=== PATIENT | male | born 1985 | race Two or more races ===

== ENCOUNTER 2025-10-17 05:40 | Day surgery (SDC) | payer OTHER, SELFPAY ==
[2025-10-16 12:33] VITALS: BMI 26.7
[2025-10-16 13:30] LABS: Basophils # (Auto) 0.1 Thou/mm3 (0.0-0.2); Basophils % (Auto) 1 % (0-2.5); Eosinophils # (Auto) 0.2 Thou/mm3 (0.0-0.5); Eosinophils % (Auto) 2 % (0-10); Hematocrit 47.9 % (41.0-53.0); Hemoglobin 16.5 g/dL (13.5-16.0); Immature Granulocytes Auto 0.00 Thou/mm3 (0.00-0.00); Lymphocytes # (Auto) 2.6 Thou/mm3 (1.0-4.8); Lymphocytes % (Auto) 39 % (10-50); Mean Corpuscular HGB Conc 34.4 g/dl (31.0-37.0); Mean Corpuscular Hemoglobin 28.5 pg (25.0-35.0); Mean Corpuscular Volume 83 fL (80-100); Monocytes # (Auto) 0.5 Thou/mm3 (0.0-0.8); Monocytes % (Auto) 7 % (0-12); Neutrophils # (Auto) 3.5 Thou/mm3 (1.8-7.7); Neutrophils % (Auto) 51 % (37-80); Nucleated Red Blood Cell # 0.00 Thou/mm3 (0.00-0.00); Nucleated Red Blood Cell % 0 /100 WBC (0); Platelet Count 272 Thou/mm3 (140-440); RDW Standard Deviation 36.4 fL (35.1-43.9); Red Blood Count 5.79 Miln/mm3 (4.50-5.90); White Blood Count 6.8 Thou/mm3 (3.8-10.6)
[2025-10-16 13:45] LABS: INR 1.1 (0.9-1.3); Partial Thromboplastin Time 29.9 Seconds (22.0-36.0); Prothrombin Time 11.3 Seconds (9.0-12.2)
[2025-10-16 13:49] LABS: Anion Gap 10 (7-16); BUN/Creatinine Ratio 16 Ratio (12-20); Blood Urea Nitrogen 14 mg/dL (9-23); Calcium 9.9 mg/dL (8.3-10.6); Carbon Dioxide 30.0 mMol/L (20.0-31.0); Chloride 102 mMol/L (98-107); Creatinine (Component) 0.9 mg/dL (0.6-1.3); Estimated Creatinine Clearance 113.9 mL/min (>60); Glucose 96 mg/dL (74-106); Osmolality,Calculated 283 (275-295); Potassium 3.8 mMol/L (3.4-5.1); Sodium 142 mMol/L (136-145); eGFR > 60 See Note
[2025-10-17] VITALS (7 sets, daily range): BP systolic 99–127; BP diastolic 63–80; PULSE 54–63; RESP 14–18; TEMP 36.3–36.4; O2SAT 97–100; BMI 26.6
--- NOTE | 2025-10-17 09:02 | SUR.PHASEI ---
pt received from OR in recovery bay 3. pt obtunded, breathing unlabored on oxymask 8l, oral airway in place. v/s stable. pt dressing right shoulder cdi. arm sling in place. report received from Jarod MCCAIN and Suleman GOODWIN.
--- NOTE | 2025-10-17 10:15 | SUR.PHASEII ---
pt able to tolerate oral fluids without difficulty swallowing or nausea/vomiting.
--- NOTE | 2025-10-17 10:20 | SUR.PHASEII ---
pt awake and alert, breathing unlabored on room air. v/s stable. pt dressing to right shoulder cdi, arm sling in place. pt able to ambulate to wheelchair with steady gait. d/c instructions given with in room all questions answered. pt d/c via wheelchair with all belogings.
--- NOTE | 2025-10-17 11:41 | PD.SUROPNT ---
Date of Procedure 10/17/25 Pre Op Diagnosis 1. Right rotator cuff tear 2 right shoulder impingement syndrome Post Op Diagnosis Same Procedure 1. Excision lateral end of the clavicle 2. Excision coracoacromial ligament 3 acromioplasty 4 repair of rotator cuff 5. 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 There was a small bony spur touching the rotator cuff. The rotator cuff was torn. There was a full-thickness tear and lateral retraction was present as well. There was 3 to 4 mm anterior osteophytes and 2 mm lateral osteophytes coming out from the acromial process. Procedure Description The patient was given general endotracheal anesthesia. Right shoulder block was also given. Once satisfactory anesthesia was achieved patient was put in about 45?? sitting position with sandbag underneath the right shoulder blade. The part was thoroughly prepped and draped. A skin incision was made at the AC joint extending proximally towards the neck for a half inches and distally towards the arm for about couple of inches. Deeper dissection was carried out. Bleeding vessels were electrocoagulated as and when encountered. The soft tissue was reflected. Following that AC joint was exposed. It revealed significant osteoarthritic changes with thickened capsule. There was some osteophyte coming out from the inferior aspect of the lateral end of the clavicle touching the rotator cuff. The deltoid muscle was reflected from the anterior and lateral aspect of the acromial process. It revealed 3 to 4 mm long anterior osteophytes and 2 to 3 mm long lateral osteophytes Following that a periosteal elevator was placed underneath the lateral end of the clavicle and lateral 3-4 mm was excised. The coracoacromial ligament was removed. With the help of curved osteotome the undersurface of the Acromial processes was chiseled out. That made more room between the superior surface of the head of the humerus and undersurface of the acromial process. Following that the rotator cuff was inspected. It revealed big oval tear, however most of the fibers were attached to the greater tuberosity. There is some retraction as well. Wound was irrigated with antibiotic solution every 4-5 minutes. The left shoulder was manipulated at this time. Full range of abduction and forward flexion was achieved. The rotator cuff tear was repaired with 2-0 Vicryl. 2 drill holes were made on the acromial process and deltoid muscle was stitched back to it. Some reinforcement sutures were placed. The subcutaneous tissue was then closed with the help of 2-0 Vicryl and 3-0 Vicryl in layers. The skin was closed with a 4-0 Monocryl After cleaning the wound with hydrogel proximal solution and sterile dressing was applied. Prineo tape was applied. Patient was taken to the recovery room in good condition. Estimated blood loss 20 mL. Prognosis in this case is good. Anesthesia GETA and other Pathology / specimen None Estimated Blood Loss 20 Surgeon Genaro Calderon MD Surgical Staff Operation Date: 10/17/25 07:30 Case Staff DRAW FRAME RUNNER: Milton Marroquin RNschool childcare attendant: Madai Martinez
--- NOTE | 2025-10-17 12:01 | ESHP_ITS ---
RE: SHAJI ALMONTE : 1985 DATE OF ADMISSION: 10/17/2025 The patient came to my office on 10/16/2025 for detailed preop history and physical examination. HISTORY OF PRESENTING COMPLAINT: The patient presented to me earlier with severe pain of the right shoulder. Pain is quite bad. The patient graded intensity of pain to be 7-8 out of 10. Unable to sleep. Quality of life and activity of daily living is affected. The patient is unable to raise the right arm above the shoulder level. In fact, he has very limited range of motion. Conservative treatment did not help him. The patient wants something to be done about it. PAST MEDICAL HISTORY: No history of diabetes mellitus, high blood pressure, asthma, seizures, chest pain, myocardial infarction, bleeding disorder. PAST SURGICAL HISTORY: Nil known. FAMILY HISTORY AND SOCIAL HISTORY: The patient denies smoking, drinking and is not working. PHYSICAL EXAMINATION: GENERAL: Normal-built person. VITAL SIGNS: Pulse is 58 per minute. Blood pressure is 113/76. NECK: Soft, supple; no mass felt. Trachea is centrally placed. CARDIOVASCULAR SYSTEM: First and second heart sound normal. No murmur heard. RESPIRATORY SYSTEM: Bilateral vesicular breath sounds. Chest clear. ABDOMEN: Soft, scaphoid. No mass felt. Bowel sounds present. EXTREMITIES: Right shoulder examination revealed prominence of the lateral end of the clavicle consistent with grade 1/2 sprain. 2+ tenderness. Active range of motion 0-80 degrees of abduction, 0-80 degrees of forward flexion. Internal rotation is painful and severely restricted. Lorena test, drop arm test and impingement tests are positive. The patient has weak fist and gaming manager. MRI scan was obtained which revealed full thickness tear of the rotator cuff with some retraction. There is DJD at AC joint with a type 2 acromial process. Since the patient is symptomatic therefore right rotator cuff repair with Sharmila procedure was discussed and advised. Risks with anesthesia was explained and that includes but not limited to reaction to anesthetic agents, cardiac arrest, and rarely it might be fatal. Risks with the operation includes infection and if that happens the patient may need further surgical procedure. Other risks include delayed healing, wound dehiscence, etc. Indeed physical therapy is very important component for successful outcome of the procedure. Full cooperation with the physical therapy is very much beneficial for a good outcome and the patient is fully aware of that. The patient wanted to proceed with surgery. Surgery is booked for 10/17/2025 in [facility]. Appropriate lab work is done. DT: 11:50:01 TT: 12:00:00 Ref: [id number] - TID: [id number]
== END 2025-10-17 10:20 | disposition home or self-care (01) ==
PROVIDERS: Referring Provider Orthopaedic Surgery; Visit Provider Orthopaedic Surgery
PROC: (CPT 23412; principal; 2025-10-17 07:30)
DX: M75.121 Complete rotator cuff tear or rupture of right shoulder, not specified as traumatic (principal); M75.41 Impingement syndrome of right shoulder; M19.011 Primary osteoarthritis, right shoulder; M25.711 Osteophyte, right shoulder
CPT/HCPCS: 23412; 23120; 36415; 80048; 85025; 85610; 85730; A4649; J0690; J1100; J1580; J2250; J2405; J2704; J2795; J3010; J3490